=== PATIENT | male | born 1965 | race Caucasian/White ===

== ENCOUNTER 2016-07-28 08:45 | Emergency (ER) | payer OTHER ==
[2016-07-28 09:09] VITALS: RESP 18; TEMP 98
[2016-07-28] MEDS ORDERED: NS 1,000 ML IV ONE ×2 (09:33→10:15)
--- NOTE | 2016-07-28 09:33 | UCPHY ---
H & P Time Seen by Provider: 07/28/16 09:12 Patient Type: Established HPI/ROS: 51-year-old male presents complaining of severe back muscle spasm radiating to bilateral legs. He denies numbness or tingling he denies fevers or chills. He has had a cold for approximately 8 days that began sometime last weekend he was able to go onto long runs last weekend without a problem during the week he took some time off from work and has been taking cold medicines. He denies nausea vomiting or diarrhea. He has had occasional chills but he denies having had a high fever. He denies injuries. No dysuria, no blood in his urine. Review of systems As per HPI-cold symptoms, nasal congestion and severe back muscle and leg muscle spasm General no fever no chills no weakness HEENT no eye pain no eye discharge. No eye redness, no sore throat Respiratory no cough, no shortness of breath Cardiac no chest pain, no peripheral edema GI no abdominal pain, no diarrhea, no constipation, no nausea, no vomiting no flank pain, no hematuria, no dysuria Musculoskeletal no myalgias, no joint pain Heme no easy bruising, no easy bleeding Endo no polyuria, no polydipsia Skin no rashes, no pruritus Neuro no syncope, no dizziness, no headaches Psych is no suicidal ideation, no homicidal ideation Past Medical/Surgical History: A welcome back none Social History: Denies alcohol or drug use Smoking Status: Never smoked Physical Exam: 51-year-old male alert When I walk into the room to see this patient he is lying on his back with his knees to chest holding his legs curled in a ball No respiratory distress, nontoxic appearance, afebrile Atraumatic normocephalic Extraocular muscles intact, anicteric Neck supple Lungs clear to auscultation bilaterally Heart regular rate and rhythm without murmur rub or gallop Abdomen normoactive bowel sounds soft nondistended Extremities no cyanosis clubbing or edema Back no rash no bruising no swelling no midline spinal tenderness no step-offs no CVA tenderness Neuro alert and oriented, no focal deficits Constitutional: Initial Vital Signs Temperature (C) 36.6 C 07/28/16 09:07 Heart Rate 55 L 07/28/16 09:07 Respiratory Rate 18 07/28/16 09:07 Blood Pressure 136/92 H 07/28/16 09:07 O2 Sat (%) 100 07/28/16 09:07 O2 Delivery Mode Room Air Allergies/Adverse Reactions: Sulfa (Sulfonamide Antibiotics) Allergy (Verified 07/28/16 09:06) sulfamethoxazole [From Bactrim] Allergy (Verified 07/28/16 09:06) trimethoprim [From Bactrim] Allergy (Verified 07/28/16 09:06) Home Medications: Medication Instructions Recorded Cyclobenzaprine [Flexeril 10 MG 10 mg PO TID PRN #15 tab 07/28/16 (*)] Hydrocodone/Acetaminophen [Vansant 1 - 2 tab PO Q6H PRN #20 tab 07/28/16 5/325 (*)] Medical Decision Making ED Course/Re-evaluation: Patient seen and evaluated for severe back muscle and leg muscle spasms that began last night but became extremely this morning. Influenza negative IV established IV fluids started, diazepam 5 mg IV push given Patient with little relief after diazepam Next he was given fentanyl 50 mcg IV push with some relief Fentanyl was repeated Additionally he received Toradol 30 mg IV push as well as lorazepam 1 mg IV push Labs were sent to rule out electrolyte abnormality as well as rhabdomyolysis CPK within normal limits CBC within normal limits Magnesium borderline low Electrolytes within normal limits including calcium Patient was given magnesium 2 g IV piggyback infusion for his borderline low magnesium Impression Severe muscle spasm Dehydration Borderline low magnesium Plan Discharge home Given prescriptions for Flexeril and Vansant Advised to rest completely to consume plenty of liquids including electrolytes To return if worsening - Data Points Laboratory Results: Laboratory Results 07/28/16 09:40 07/28/16 09:40 07/28/16 07/28/16 07/28/16 10:55 09:42 09:40 WBC 7.50 10^3/uL (3.80-9.50) RBC 4.83 10^6/uL (4.40-6.38) Hgb 14.8 g/dL (13.7-17.5) Hct 42.8 % (40.0-51.0) MCV 88.6 fL (81.5-99.8) MCH 30.6 pg (27.9-34.1) MCHC 34.6 g/dL (32.4-36.7) RDW 11.2 L % (11.5-15.2) Plt Count 207 10^3/uL (150-400) MPV 10.1 fL (8.7-11.7) Neut % (Auto) 79.4 H % (39.3-74.2) Lymph % (Auto) 10.3 L % (15.0-45.0) [place] % (Auto) 8.3 % (4.5-13.0) Eos % (Auto) 1.1 % (0.6-7.6) Baso % (Auto) 0.4 % (0.3-1.7) Nucleat RBC Rel Count 0.0 % (0.0-0.2) Absolute Neuts (auto) 5.96 10^3/uL (1.70-6.50) Absolute Lymphs (auto) 0.77 L 10^3/uL (1.00-3.00) Absolute Monos (auto) 0.62 10^3/uL (0.30-0.80) Absolute Eos (auto) 0.08 10^3/uL (0.03-0.40) Absolute Basos (auto) 0.03 10^3/uL (0.02-0.10) Absolute Nucleated RBC 0.00 10^3/uL (0-0.01) Immature Gran % 0.5 % (0.0-1.1) Immature Gran # 0.04 10^3/uL (0.00-0.10) Sodium 138 mEq/L (134-144) Potassium 4.3 mEq/L (3.5-5.2) Chloride 101 mEq/L (97-110) Carbon Dioxide 26 mEq/l (22-31) Anion Gap 11 mEq/L (8-16) BUN 17 mg/dL (7-23) Creatinine 0.9 mg/dL (0.7-1.3) Estimated GFR > 60 Glucose 95 mg/dL (70-100) Calcium 9.2 mg/dL (8.5-10.4) Magnesium 1.7 mg/dL (1.6-2.3) Total Bilirubin 0.9 mg/dL (0.1-1.4) AST 26 IU/L (17-59) ALT 35 IU/L (21-72) Alkaline Phosphatase 70 IU/L (38-126) Creatine Kinase 97 IU/L (0-224) Total Protein 6.8 g/dL (6.3-8.2) Albumin 4.1 g/dL (3.5-5.0) Urine Color YELLOW Urine Appearance CLEAR Urine pH 7.0 (5.0-7.5) Ur Specific [place] 1.020 (1.002-1.030) Urine Protein NEGATIVE (NEGATIVE) Urine Ketones NEGATIVE (NEGATIVE) Urine Blood NEGATIVE (NEGATIVE) Urine Nitrate NEGATIVE (NEGATIVE) Urine Bilirubin NEGATIVE (NEGATIVE) Urine Urobilinogen 0.2 EU (0.2-1.0) Ur Leukocyte Esterase NEGATIVE (NEGATIVE) Ur Culture Indicated? NOT INDICATED (NI) Urine Glucose NEGATIVE (NEGATIVE) Influenza Typ A,B (DFA) 07/28/16 09:12 WBC RBC Hgb Hct MCV MCH MCHC RDW Plt Count MPV Neut % (Auto) Lymph % (Auto) [place] % (Auto) Eos % (Auto) Baso % (Auto) Nucleat RBC Rel Count Absolute Neuts (auto) Absolute Lymphs (auto) Absolute Monos (auto) Absolute Eos (auto) Absolute Basos (auto) Absolute Nucleated RBC Immature Gran % Immature Gran # Sodium Potassium Chloride Carbon Dioxide Anion Gap BUN Creatinine Estimated GFR Glucose Calcium Magnesium Total Bilirubin AST ALT Alkaline Phosphatase Creatine Kinase Total Protein Albumin Urine Color Urine Appearance Urine pH Ur Specific [place] Urine Protein Urine Ketones Urine Blood Urine Nitrate Urine Bilirubin Urine Urobilinogen Ur Leukocyte Esterase Ur Culture Indicated? Urine Glucose Influenza Typ A,B (DFA) NEGATIVE FOR FLU (NEGATIVE) Medications Given: Discontinued Medications Diazepam (Valium Injection) 2.5 mg IVP EDNOW ONE Stop: 07/28/16 09:36 Last Admin: 07/28/16 09:46 Dose: 2.5 mg Fentanyl (Sublimaze) 50 mcg IVP EDNOW ONE Stop: 07/28/16 10:15 Last Admin: 07/28/16 10:25 Dose: 50 mcg Fentanyl (Sublimaze) 50 mcg IVP EDNOW ONE Stop: 07/28/16 10:40 Last Admin: 07/28/16 10:41 Dose: 50 mcg Sodium Chloride (Ns) 1,000 mls @ 0 mls/hr IV ONCE ONE PRN Reason: Wide Open Stop: 07/28/16 09:34 Last Admin: 07/28/16 09:46 Dose: 1,000 mls Sodium Chloride (Ns) 1,000 mls @ 0 mls/hr IV ONCE ONE PRN Reason: Wide Open Stop: 07/28/16 10:16 Last Admin: 07/28/16 10:26 Dose: 1,000 mls Magnesium Sulfate (Magnesium Sulf 2 Gm (Premix)) 50 mls @ 50 mls/hr IV EDNOW ONE Stop: 07/28/16 12:55 Last Admin: 07/28/16 12:17 Dose: 50 mls Ketorolac Tromethamine (Toradol) 30 mg IVP EDNOW ONE Stop: 07/28/16 10:45 Last Admin: 07/28/16 10:55 Dose: 30 mg Lorazepam (Ativan Injection) 1 mg IVP EDNOW ONE Stop: 07/28/16 11:59 Last Admin: 07/28/16 12:17 Dose: 1 mg Departure - Departure Disposition: Home, Routine, Self-Care Clinical Impression: Muscle spasm of back, Leg muscle spasm, Low magnesium level Condition: Good Instructions: Muscle Spasm (ED), Hypomagnesemia (ED) Additional Instructions: Follow-up with your primary care physician in the next 1-3 days. Return to the emergency department or urgent care for severe pain severe spasm and/or high fever. Referrals: Chuy Evangelista MD [Primary Care Provider] - As per Instructions Prescriptions: Cyclobenzaprine [Flexeril 10 MG (*)] 10 mg PO TID PRN #15 tab PRN Reason: Spasms Hydrocodone/Acetaminophen [Vansant 5/325 (*)] 1 - 2 tab PO Q6H PRN #20 tab PRN Reason: Pain, Moderate - PQRS PQRS Measurement: na
[2016-07-28] MEDS ORDERED: DIAZEPAM 10 MG/2 ML SYR IVP ONE (09:35)
[2016-07-28 09:49] LABS: % IMMATURE GRANULYOCYTES 0.5 % (0.0-1.1); ABSOLUTE IMMATURE GRANULOCYTES 0.04 10^3/uL (0.00-0.10); ADD DIFF? NO; ADD MORPH? NO; ADD SCAN? NO; ATYPICAL LYMPHOCYTE FLAG 10 (0-99); FRAGMENT RBC FLAG 0 (0-99); HEMATOCRIT 42.8 % (40.0-51.0); HEMOGLOBIN 14.8 g/dL (13.7-17.5); LEFT SHIFT FLG 20 (0-99); LIPEMIA HEMOLYSIS FLAG 90 (0-99); MEAN CELL HEMOGLOBIN 30.6 pg (27.9-34.1); MEAN CELL HEMOGLOBIN CONCENTR. 34.6 g/dL (32.4-36.7); MEAN CELL VOLUME 88.6 fL (81.5-99.8); MEAN PLATELET VOLUME 10.1 fL (8.7-11.7); PLATELET CLUMPS FLAG 10 (0-99); PLATELET COUNT 207 10^3/uL (150-400); RED BLOOD CELL COUNT 4.83 10^6/uL (4.40-6.38); RED CELL DISTRIBUTION WIDTH 11.2 % (11.5-15.2)
[2016-07-28 10:09] LABS: ALANINE AMINOTRANSFERASE 35 IU/L (21-72); ALBUMIN 4.1 g/dL (3.5-5.0); ALKALINE PHOSPHATASE 70 IU/L (38-126); ANION GAP 11 mEq/L (8-16); ASPARTATE AMINOTRANSFERASE 26 IU/L (17-59); BILIRUBIN,TOTAL 0.9 mg/dL (0.1-1.4); CALCIUM 9.2 mg/dL (8.5-10.4); CARBON DIOXIDE 26 mEq/l (22-31); CHLORIDE 101 mEq/L (97-110); CREATININE 0.9 mg/dL (0.7-1.3); GLOMERULAR FILTRATION RATE > 60; GLUCOSE 95 mg/dL (70-100); POTASSIUM 4.3 mEq/L (3.5-5.2); SODIUM 138 mEq/L (134-144); TOTAL PROTEIN 6.8 g/dL (6.3-8.2)
[2016-07-28] MEDS ORDERED: fentaNYL 100 MCG/2 ML INJ IVP ONE ×2 (10:14→10:39)
[2016-07-28 10:27] VITALS: O2SAT 97
[2016-07-28] MEDS ORDERED: KETOROLAC 30 MG/1 ML SDV ONE (10:39)
[2016-07-28] MEDS ORDERED: KETOROLAC 30 MG/1 ML SDV IVP ONE (10:44)
[2016-07-28 10:58] LABS: COLOR YELLOW; LEUKOCYTE ESTERASE,URINE NEGATIVE (NEGATIVE); NITRITE,URINE NEGATIVE (NEGATIVE)
[2016-07-28] MEDS ORDERED: MAGNESIUM SULF 2 GM/WATER 50 ML IV ONE (11:56)
[2016-07-28] MEDS ORDERED: LORazepam 2 MG/ML INJ IVP ONE (11:58)
[2016-07-28 13:13] VITALS: BP 125/62; PULSE 62
== END 2016-07-28 13:10 | disposition home or self-care (01) ==
LOC: CED 08:45
DX: M62.830 Muscle spasm of back (principal); E83.42 Hypomagnesemia
CPT/HCPCS: 80053-PO; 81003-PO; 82550-PO; 83735-PO; 85025-PO; 87400-PO; 96361-PO; 96365-PO; G0463-PO; J1885; J3010